=== PATIENT | female | born 1950 | race Two or more races ===

== ENCOUNTER 2019-03-21 11:56 | Inpatient (IN) | payer OTHER ==
[~2019-03-21 11:56] MED LIST: HYZAAR 50-12.51 EACH; MAGNESIUM27 MG; VITAMINA C
[2019-03-25] MEDS ORDERED: VITAMIN C100 MG (09:43)
[2019-03-25] MEDS ORDERED: SERTRALINE HCL50 MG PO (09:44)
[2019-03-25] MEDS ORDERED: ESTRACE42.5 GM (09:44)
[2019-03-25] MEDS ORDERED: ALPRAZOLAM0.5 MG PO (09:44)
[2019-03-28] MEDS ORDERED: OXYC1TAB9 PO (13:04)
== END 2019-03-28 15:07 | disposition home or self-care (01) | DRG 330 ==
LOC: EDSTATUS 13:15 → ADM 13:15 → SURH 03-25 07:00 → O/R 03-25 09:15 → SURG 03-25 09:15 → SURH 03-25 13:15 → SURG 03-25 17:13
PROVIDERS: ADMIT Surgery
PROC: 0DJD8ZZ Inspection of Lower Intestinal Tract, Via Natural or Artificial Opening Endoscopic (ICD-10-PCS; 2019-03-25)
PROC: 0DTN4ZZ Resection of Sigmoid Colon, Percutaneous Endoscopic Approach (ICD-10-PCS; principal; 2019-03-25 07:00)
DX: K57.20 Diverticulitis of large intestine with perforation and abscess without bleeding (principal); N82.3 Fistula of vagina to large intestine; I10 Essential (primary) hypertension; R14.0 Abdominal distension (gaseous)